=== PATIENT | female | born 1985 | race Hispanic/Latino ===

== ENCOUNTER 2018-08-08 08:25 | Emergency (ER) | payer OTHER ==
[2018-08-08] MEDS ORDERED: BENZONATATE 100 MG CAPSULE PO ONE (09:10)
[2018-08-08] MEDS ORDERED: ONDANSETRON HCL 4 MG/2 ML VIAL ONE (09:10)
[2018-08-08] MEDS ORDERED: SODIUM CHLORIDE 0.9% 1000ML 1,000 ML IV ONE ×2 (09:10→10:42)
[2018-08-08] MEDS ORDERED: AZITHROMYCIN 500MG+NS 250ML 250 ML IV ONE (09:11)
[2018-08-08] MEDS ORDERED: CEFTRIAXONE SODIUM 1 GM ONE (09:11)
[2018-08-08 09:18] LABS: BASOPHILS % (AUTO) 1.1 % (0.0-5.0); EOSINOPHILS % (AUTO) 0.2 % (0.0-8.0); HEMATOCRIT 38.6 % (36-48); LYMPHOCYTES % (AUTO) 62.3 % (21.0-51.0); MEAN CORPUSCULAR HGB CONC 33.3 g/dL (32.0-36.0); MONOCYTES % (AUTO) 8.5 % (3.0-13.0); NEUTROPHILS % (AUTO) 27.9 % (40.0-77.0); NUCLEATED RED BLOOD CELLS 0.2 % (0.0-0.19); PLATELET COUNT (AUTO) 127 K/uL (130-400); RED CELL DISTRIBUTION WIDTH 18.2 % (11.0-15.5); WHITE BLOOD COUNT (AUTO) 4.6 K/uL (4.8-10.8)
[2018-08-08 09:30] LABS: APPEARANCE,URINE CLEAR (CLEAR); BILIRUBIN,URINE NEGATIVE (NEGATIVE); COLOR,URINE YELLOW (YELLOW); GLUCOSE, URINE (UA) NEGATIVE (NEGATIVE); KETONES,URINE NEGATIVE (NEGATIVE); LEUKOCYTE ESTERASE ,URINE NEGATIVE (NEGATIVE); NITRATE,URINE NEGATIVE (NEGATIVE); OCCULT BLOOD,URINE NEGATIVE (NEGATIVE); PROTEIN,URINE TRACE (NEGATIVE)
[2018-08-08 09:31] LABS: CREATININE 0.6 mg/dL (0.5-1.5); POTASSIUM 3.1 mmol/L (3.5-5.1)
[2018-08-08 09:36] LABS: ALBUMIN 3.4 g/dL (3.5-5.0); BILIRUBIN,TOTAL 1.9 mg/dL (0.2-1.0); TOTAL PROTEIN, SERUM 7.7 g/dL (6.0-8.3)
[2018-08-08 09:41] LABS: HCG,QUAL RESULT NEGATIVE (NEGATIVE)
[2018-08-08 09:44] LABS: BACTERIA,URINE Rare /HPF (None Seen); MUCUS,URINE Rare LPF (None Seen); RBC,URINE None Seen /HPF (0-1); SQUAMOUS EPITHELIAL CELL,UR Few /HPF (0-2); WBC,URINE 0-1 /HPF (0-1)
[2018-08-08] MEDS ORDERED: POTASSIUM BICARB/CIT AC 25 MEQ TABLET.EFF ONE (10:42)
[2018-08-08] MEDS ORDERED: SODIUM CHLORIDE 0.9% 1000ML 1,000 ML IV SCH (11:35)
[2018-08-08] MEDS ORDERED: LORAZEPAM 2 MG/ML 1 ML VIAL ONE (11:42)
[2018-08-08] MEDS ORDERED: OSELTAMIVIR PHOSPHATE 75 MG CAP ONE (11:42)
[2018-08-08] MEDS ORDERED: MAG HYDROX/AL HYDROX/SIMETH ES 30 ML SUSP UDCUP PO PRN (11:45)
[2018-08-08] MEDS ORDERED: AZITHROMYCIN 500MG+NS 250ML 250 ML IV SCH (11:45)
[2018-08-08] MEDS ORDERED: ZOLPIDEM TARTRATE 5 MG TAB PO PRN (11:45)
[2018-08-08] MEDS ORDERED: ONDANSETRON HCL 4 MG/2 ML VIAL IV PRN (11:45)
[2018-08-08] MEDS ORDERED: GUAIFENESIN-DM 200/20 MG 10 ML PO PRN (11:45)
[2018-08-08] MEDS ORDERED: ACETAMINOPHEN 325 MG TAB PO PRN (11:45)
[2018-08-08] MEDS ORDERED: LACTULOSE 20 GM/30 ML UDCUP PO PRN (11:45)
[2018-08-08] MEDS ORDERED: CEFTRIAXONE SODIUM 1 GM IV SCH (11:45)
[2018-08-08] MEDS ORDERED: HYDRALAZINE HCL 20 MG/ML VIAL IV PRN (11:45)
[2018-08-08] MEDS ORDERED: IPRATROPIUM/ALBUTEROL SULFATE 3 ML SOLUTION IH SCH (12:00)
[2018-08-08 12:07] LABS: HEMOGLOBIN A1C 4.9 % (4.0-6.0)
[2018-08-08 12:17] LABS: THYROID STIMULATING HORMONE 2.67 uIU/mL (0.36-3.74)
[2018-08-08 12:23] LABS: CRP QUANTITATIVE < 2.00 mg/L (0.00-9.0)
[2018-08-08] MEDS ORDERED: BENZONATATE 100 MG CAPSULE PO SCH (14:00)
[2018-08-09] MEDS ORDERED: PANTOPRAZOLE SODIUM 40 MG TABLET.DR PO SCH (09:00)
[2018-08-09] MEDS ORDERED: ENOXAPARIN SODIUM 40 MG/0.4 ML SYRINGE SQ SCH (09:00)
[2018-08-09 10:09] LABS: HEPATITIS A ANTIBODY IGM Negative (Negative); HEPATITIS B CORE IGM Negative (Negative); HEPATITIS Bs ANTIGEN SCREEN P Negative (Negative)
== END 2018-08-08 12:04 | disposition left against medical advice (07) ==
LOC: EEVIPCON 08:25 → EDH 08:25
DX: R05 Cough (principal); R09.81 Nasal congestion; R50.9 Fever, unspecified; Z88.6 Allergy status to analgesic agent; Z91.041 Radiographic dye allergy status
CPT/HCPCS: 36415; 71046; 80053; 80074; 80339; 81001; 81025; 83036; 83605 ×2; 84443; 85025; 86140; 87040; 87804 ×2; 96365; 96366; 96375; 99285; J0456; J0696; J2060; J2405; J7030 ×2

== ENCOUNTER 2018-08-08 19:50 | Emergency (ER) | payer OTHER ==
[2018-08-08 21:24] LABS: APPEARANCE,URINE Clear (CLEAR); BILIRUBIN,URINE Negative (NEGATIVE); COLOR,URINE Yellow (YELLOW); GLUCOSE, URINE (UA) Negative (NEGATIVE); KETONES,URINE Negative (NEGATIVE); LEUKOCYTE ESTERASE ,URINE Negative (NEGATIVE); NITRATE,URINE Negative (NEGATIVE); OCCULT BLOOD,URINE Negative (NEGATIVE); PH,URINE >=9.0 (5.0-8.0); PROTEIN,URINE Negative (NEGATIVE)
[2018-08-08 21:30] LABS: AMPHET/METH SCREEN,URINE NEGATIVE (NEGATIVE); BARBITURATE SCREEN, URINE NEGATIVE (NEGATIVE); BENZODIAZEPINES SCREEN,URINE POSITIVE (NEGATIVE); CANNABINOID SCREEN,URINE NEGATIVE (NEGATIVE); COCAINE SCREEN,URINE NEGATIVE (NEGATIVE); OPIATE SCREEN,URINE NEGATIVE (NEGATIVE); PHENCYCLIDINE SCREEN,URINE NEGATIVE (NEGATIVE)
[2018-08-08 22:20] LABS: BASOPHILS % (AUTO) 0.2 % (0.0-5.0); EOSINOPHILS % (AUTO) 0.1 % (0.0-8.0); LYMPHOCYTES % (AUTO) 27.6 % (21.0-51.0); MEAN CORPUSCULAR HEMOGLOBIN 32.6 pg (27.0-33.0); MEAN CORPUSCULAR VOLUME 98.8 fL (79-99); MONOCYTES % (AUTO) 12.9 % (3.0-13.0); NEUTROPHILS % (AUTO) 59.2 % (40.0-77.0); NUCLEATED RED BLOOD CELLS 0.1 % (0.0-0.19); PLATELET COUNT (AUTO) 116 K/uL (130-400); RED BLOOD CELL COUNT(AUTO) 4.15 MIL/uL (4.00-5.50); RED CELL DISTRIBUTION WIDTH 18.3 % (11.0-15.5); WHITE BLOOD COUNT (AUTO) 4.7 K/uL (4.8-10.8)
[2018-08-08 22:29] LABS: CARBON DIOXIDE 31 mmol/L (21-32); CHLORIDE 97 mmol/L (101-111); CREATININE 0.7 mg/dL (0.5-1.5); GLOMERULAR FILTR. RATE CALC 102 mL/min (>60); GLUCOSE,RANDOM 106 mg/dL (70-105); POTASSIUM 3.9 mmol/L (3.5-5.1); SODIUM SERUM 137 mmol/L (136-145); UREA NITROGEN, BLOOD 4 mg/dL (7-18)
[2018-08-08 22:34] LABS: ALANINE AMINOTRANSFERASE 162 U/L (12-78); ALBUMIN 3.5 g/dL (3.5-5.0); ALCOHOL, BLOOD < 3 mg/dL (0-10); ASPARTATE AMINOTRANSFERASE 369 U/L (10-37); BILIRUBIN,TOTAL 3.7 mg/dL (0.2-1.0); CREATINE KINASE, TOTAL 34 U/L (21-232); TOTAL PROTEIN, SERUM 7.6 g/dL (6.0-8.3)
== END 2018-08-08 23:18 | disposition home or self-care (01) ==
LOC: EDH 19:50
DX: K76.0 Fatty (change of) liver, not elsewhere classified (principal); R50.9 Fever, unspecified; R05 Cough; Z88.6 Allergy status to analgesic agent; Z91.041 Radiographic dye allergy status
CPT/HCPCS: 36415; 80053; 80305; 81003; 82550; 83605; 84484; 85025; 87880; 93005; 99285; G0480

== ENCOUNTER 2018-10-12 16:08 | Emergency (ER) | payer OTHER ==
[2018-10-12] MEDS ORDERED: SODIUM CHLORIDE 0.9% 1000ML 1,000 ML IV ONE (16:38)
[2018-10-12 17:07] LABS: BASOPHILS % (AUTO) 0.5 % (0.0-5.0); EOSINOPHILS % (AUTO) 0.2 % (0.0-8.0); HEMATOCRIT 33.8 % (36-48); MEAN CORPUSCULAR HEMOGLOBIN 35.2 pg (27.0-33.0); MEAN CORPUSCULAR HGB CONC 33.3 g/dL (32.0-36.0); MEAN CORPUSCULAR VOLUME 105.7 fL (79-99); MONOCYTES % (AUTO) 12.9 % (3.0-13.0); NEUTROPHILS % (AUTO) 66.4 % (40.0-77.0); NUCLEATED RED BLOOD CELLS 0.1 % (0.0-0.19); PLATELET COUNT (AUTO) 138 K/uL (130-400); RED CELL DISTRIBUTION WIDTH 18.9 % (11.0-15.5); WHITE BLOOD COUNT (AUTO) 5.8 K/uL (4.8-10.8)
[2018-10-12 17:12] LABS: INR 1.37 (0.85-1.15); PARTIAL THROMBOPLASTIN TIME 27.4 SEC (26.3-35.5); PROTHROMBIN TIME 14.3 SEC (9.6-11.6)
[2018-10-12 17:13] LABS: ALBUMIN 3.5 g/dL (3.5-5.0); BILIRUBIN,TOTAL 12.9 mg/dL (0.2-1.0); CREATININE 0.8 mg/dL (0.5-1.5)
[2018-10-12 17:15] LABS: POTASSIUM 2.5 mmol/L (3.5-5.1)
[2018-10-12] MEDS ORDERED: KETOROLAC TROMETHAMINE 15MG/ML ONE (17:28)
[2018-10-12] MEDS ORDERED: POTASSIUM BICARB/CIT AC 25 MEQ TABLET.EFF ONE (17:43)
[2018-10-12] MEDS ORDERED: MAGNESIUM OXIDE 400 MG TABLET PO ONE (17:43)
[2018-10-12] MEDS ORDERED: POTASSIUM CHLORIDE 20MEQ/100ML 100 ML IV ONE (17:44)
[2018-10-12 18:05] LABS: APPEARANCE,URINE CLOUDY (CLEAR); BILIRUBIN,URINE LARGE (NEGATIVE); COLOR,URINE ORANGE (YELLOW); GLUCOSE, URINE (UA) 100 mg/dL (NEGATIVE); KETONES,URINE 15 mg/dL (NEGATIVE); LEUKOCYTE ESTERASE ,URINE TRACE (NEGATIVE); NITRATE,URINE POSITIVE (NEGATIVE); OCCULT BLOOD,URINE SMALL (NEGATIVE); PH,URINE 6.5 (5.0-8.0); PROTEIN,URINE 100 (NEGATIVE); UROBILINOGEN,URINE >=8.0 mg/dL (0.2-1.0)
[2018-10-12 18:34] LABS: BACTERIA,URINE Few /HPF (None Seen); MUCUS,URINE Moderate LPF (None Seen); SQUAMOUS EPITHELIAL CELL,UR Moderate /HPF (0-2)
[2018-10-12 18:44] LABS: HYALINE CASTS, URINE 0-1 /LPF (0-1 /LPF)
[2018-10-12] MEDS ORDERED: LIDOCAINE HCL-MPF 1% 2ML VIAL ONE (19:26)
[2018-10-12] MEDS ORDERED: NITROFURANTOIN MONOHYD/M-CRYST 100 MG CAPSULE PO ONE (20:12)
== END 2018-10-12 20:49 | disposition home or self-care (01) ==
LOC: EDH 16:08
DX: N39.0 Urinary tract infection, site not specified (principal); E87.6 Hypokalemia; R17 Unspecified jaundice; F32.9 Major depressive disorder, single episode, unspecified; F41.9 Anxiety disorder, unspecified; K29.70 Gastritis, unspecified, without bleeding; Z88.5 Allergy status to narcotic agent; Z91.041 Radiographic dye allergy status
CPT/HCPCS: 36415; 76770; 80053; 81001; 83690; 83735; 84132; 84703; 85025; 85610; 85730; 93005; 96374; 96375; 99284; J1885; J3480; J3490; J7030

== ENCOUNTER 2018-10-17 14:56 | Inpatient (IN) | payer OTHER ==
[~2018-10-17] VITALS: Ht 154.9 cm; Wt 58.3 kg
[2018-10-17] MEDS ORDERED: ONDANSETRON HCL 4 MG/2 ML VIAL ONE (16:08)
[2018-10-17] MEDS ORDERED: DICYCLOMINE HCL 10 MG/ML 2ML AMP IM ONE (16:08)
[2018-10-17] MEDS ORDERED: SODIUM CHLORIDE 0.9% 1000ML 1,000 ML IV ONE (16:08)
[2018-10-17 16:28] LABS: BASOPHILS % (AUTO) 2.4 % (0.0-5.0); EOSINOPHILS % (AUTO) 0.1 % (0.0-8.0); HEMATOCRIT 33.4 % (36-48); LYMPHOCYTES % (AUTO) 10.2 % (21.0-51.0); MEAN CORPUSCULAR HEMOGLOBIN 36.4 pg (27.0-33.0); MEAN CORPUSCULAR HGB CONC 32.8 g/dL (32.0-36.0); MEAN CORPUSCULAR VOLUME 110.9 fL (79-99); MONOCYTES % (AUTO) 24.1 % (3.0-13.0); NEUTROPHILS % (AUTO) 63.2 % (40.0-77.0); NUCLEATED RED BLOOD CELLS 0.1 % (0.0-0.19); PLATELET COUNT (AUTO) 317 K/uL (130-400); RED BLOOD CELL COUNT(AUTO) 3.01 MIL/uL (4.00-5.50); RED CELL DISTRIBUTION WIDTH 21.4 % (11.0-15.5); WHITE BLOOD COUNT (AUTO) 6.1 K/uL (4.8-10.8)
[2018-10-17 16:29] LABS: APPEARANCE,URINE Cloudy (CLEAR); BILIRUBIN,URINE Large (NEGATIVE); COLOR,URINE Orange (YELLOW); GLUCOSE, URINE (UA) Negative (NEGATIVE); KETONES,URINE Negative (NEGATIVE); LEUKOCYTE ESTERASE ,URINE Moderate (NEGATIVE); NITRATE,URINE Positive (NEGATIVE); OCCULT BLOOD,URINE Negative (NEGATIVE); PH,URINE 5.5 (5.0-8.0); PROTEIN,URINE POS 1+ (NEGATIVE)
[2018-10-17 16:32] LABS: HCG,QUAL RESULT NEGATIVE (NEGATIVE)
[2018-10-17 16:38] LABS: CREATININE 0.4 mg/dL (0.5-1.5); POTASSIUM 3.4 mmol/L (3.5-5.1)
[2018-10-17 16:39] LABS: INR 1.3 (0.85-1.15); PARTIAL THROMBOPLASTIN TIME 25.9 SEC (26.3-35.5); PROTHROMBIN TIME 13.6 SEC (9.6-11.6)
[2018-10-17 16:50] LABS: MUCUS,URINE Many LPF (None Seen)
[2018-10-17 16:51] LABS: ALBUMIN 2.9 g/dL (3.5-5.0); BACTERIA,URINE Few /HPF (None Seen); RBC,URINE None Seen /HPF (0-1); TOTAL PROTEIN, SERUM 6.4 g/dL (6.0-8.3); TRANSITIONAL EPI CELLS,URINE Moderate /HPF (None Seen)
[2018-10-17 16:53] LABS: BILIRUBIN,TOTAL 16.8 mg/dL (0.2-1.0)
[2018-10-17 23:00] VITALS: BP 111/61
[2018-10-17] MEDS ORDERED: ONDANSETRON HCL 4 MG/2 ML VIAL IV PRN (23:15)
[2018-10-17] MEDS ORDERED: POTASSIUM CHLORIDE 20MEQ/100ML 100 ML IV PRN (23:15)
[2018-10-17] MEDS ORDERED: LIDOCAINE HCL-MPF 1% 2ML VIAL IVP PRN (23:15)
[2018-10-17] MEDS ORDERED: MAGNESIUM 2GM PREMIX 50ML 50 ML IV PRN (23:15)
[2018-10-18] VITALS (23 sets, daily range): BP systolic 84–128; BP diastolic 40–76
--- NOTE | 2018-10-18 01:43 | NUR ---
ATTEMPTED REPORT ATTEMPTED TO CALL REPORT, SCOT NOT AVAILABLE AT PRESENT
--- NOTE | 2018-10-18 02:09 | NUR ---
REPORT REPORT GIVEN TO SCOT MENDOZA, CARE ENDORSED. PT AAOX3, TRANSFERRED VIA STRETCHER
--- NOTE | 2018-10-18 02:30 | NUR ---
ADMISSION. PT ADMITTED INTO ROOM 422 FROM ER. TRANSFERRED VIA W/C, PT AWAKE AND ALERT, ABLE TO AMBULATE TO BED. C/O PAIN TO ABD 07/29. PT AND FAMILY ORIENTED TO ROOM. CALL MAZARIEGOS WITHIN REACH. Addendum: 10/18/18 at 0254 by SANIA PORTILLO RN Amended: Links added.
[2018-10-18] MEDS ORDERED: MORPHINE SULFATE 4 MG/1ML SYG IV SCH (03:00)
[2018-10-18] MEDS: SODIUM CHLORIDE 0.9% 1000ML 1,000 ML IV SCH ×4 (03:07→22:09)
[2018-10-18] MEDS: LEVOFLOXACIN 500 MG/D5W 100 ML 100 ML IV SCH ×2 (03:07→22:51)
[2018-10-18] MEDS ORDERED: MORPHINE SULFATE 4 MG/1ML SYG ONE (03:18)
[2018-10-18] MEDS ORDERED: MORPHINE SULFATE 2 MG/ML 1ML SYG IVP PRN (04:00)
[2018-10-18 04:32] LABS: AMPHET/METH SCREEN,URINE NEGATIVE (NEGATIVE); BARBITURATE SCREEN, URINE NEGATIVE (NEGATIVE); BENZODIAZEPINES SCREEN,URINE POSITIVE (NEGATIVE); CANNABINOID SCREEN,URINE NEGATIVE (NEGATIVE); COCAINE SCREEN,URINE NEGATIVE (NEGATIVE); OPIATE SCREEN,URINE NEGATIVE (NEGATIVE); PHENCYCLIDINE SCREEN,URINE NEGATIVE (NEGATIVE)
[2018-10-18 06:14] LABS: EOSINOPHILS % (AUTO) 0.2 % (0.0-8.0); HEMATOCRIT 27.2 % (36-48); LYMPHOCYTES % (AUTO) 19.5 % (21.0-51.0); MEAN CORPUSCULAR HEMOGLOBIN 36.9 pg (27.0-33.0); MEAN CORPUSCULAR HGB CONC 33.8 g/dL (32.0-36.0); MEAN CORPUSCULAR VOLUME 109.2 fL (79-99); MONOCYTES % (AUTO) 25.7 % (3.0-13.0); NEUTROPHILS % (AUTO) 52.6 % (40.0-77.0); NUCLEATED RED BLOOD CELLS 0.1 % (0.0-0.19); PLATELET COUNT (AUTO) 277 K/uL (130-400); RED BLOOD CELL COUNT(AUTO) 2.49 MIL/uL (4.00-5.50); RED CELL DISTRIBUTION WIDTH 21.2 % (11.0-15.5); WHITE BLOOD COUNT (AUTO) 6.3 K/uL (4.8-10.8)
[2018-10-18 06:26] LABS: INR 1.44 (0.85-1.15); PARTIAL THROMBOPLASTIN TIME 28.2 SEC (26.3-35.5)
[2018-10-18 06:38] LABS: ALBUMIN 2.5 g/dL (3.5-5.0); BILIRUBIN,TOTAL 15.4 mg/dL (0.2-1.0); CREATININE 0.5 mg/dL (0.5-1.5); POTASSIUM 3.2 mmol/L (3.5-5.1); TOTAL PROTEIN, SERUM 5.9 g/dL (6.0-8.3)
[2018-10-18] MEDS ORDERED: PANTOPRAZOLE 40 MG/VIAL IVP SCH (09:00)
[2018-10-18] MEDS ORDERED: METOCLOPRAMIDE 10 MG/2 ML VIAL IVP SCH (09:16)
[2018-10-18] MEDS ORDERED: PHYTONADIONE 10 MG in SODIUM CHLORIDE 0.9% 50 ML IV SCH (09:16)
[2018-10-18] MEDS ORDERED: LACTULOSE 20 GM/30 ML UDCUP PO PRN (11:00)
[2018-10-18] MEDS ORDERED: PROPOFOL 10 MG/ML 20ML VIAL IV ONE (11:37)
[2018-10-18] MEDS ORDERED: POTASSIUM CHLORIDE 10% ELIXIR 20 MEQ/15 ML UDCUP PO PRN (14:00)
[2018-10-18] MEDS ORDERED: POTASSIUM CHLORIDE 20MEQ/100ML 100 ML IV PRN (14:00)
[2018-10-18] MEDS ORDERED: LIDOCAINE HCL-MPF 1% 2ML VIAL IVP PRN (14:00)
--- NOTE | 2018-10-18 15:33 | NUR ---
D/C PLAN MARY spoke to pt regarding d/c planning. pt is independent and lives with her children. States her sister can assist in care if needed. Cm provided community resources packet. Plan to home. CM to f/u Addendum: 10/18/18 at 1534 by ALYSIA TEE CM Amended: Links added.
[2018-10-18] MEDS: POTASSIUM CHLORIDE 20 MEQ ERTAB PO PRN ×4 (15:40→20:58)
[2018-10-18] MEDS ORDERED: ZOLPIDEM TARTRATE 5 MG TAB PO ONE (21:00)
[2018-10-18] MEDS: LACTULOSE 20 GM/30 ML UDCUP PO SCH (21:00)
[2018-10-18] MEDS: HYDROCORTISONE 25 MG SUPPOSITORY PR SCH (21:15)
[2018-10-19 04:00] VITALS: BP 101/52
[2018-10-19] MEDS: SODIUM CHLORIDE 0.9% 1000ML 1,000 ML IV SCH ×2 (06:24→09:03)
[2018-10-19 06:58] LABS: BASOPHILS % (AUTO) 0.9 % (0.0-5.0); EOSINOPHILS % (AUTO) 0.2 % (0.0-8.0); HEMATOCRIT 26.8 % (36-48); LYMPHOCYTES % (AUTO) 12.2 % (21.0-51.0); MEAN CORPUSCULAR HEMOGLOBIN 37.1 pg (27.0-33.0); MEAN CORPUSCULAR HGB CONC 33.2 g/dL (32.0-36.0); MEAN CORPUSCULAR VOLUME 111.6 fL (79-99); MONOCYTES % (AUTO) 21.3 % (3.0-13.0); NEUTROPHILS % (AUTO) 65.4 % (40.0-77.0); PLATELET COUNT (AUTO) 307 K/uL (130-400); WHITE BLOOD COUNT (AUTO) 6.3 K/uL (4.8-10.8)
[2018-10-19 07:06] LABS: CREATININE 0.5 mg/dL (0.5-1.5)
[2018-10-19 07:30] VITALS: BP 96/53
[2018-10-19] MEDS: HYDROCORTISONE 25 MG SUPPOSITORY PR SCH (08:50)
[2018-10-19] MEDS: LACTULOSE 20 GM/30 ML UDCUP PO SCH (08:51)
[2018-10-19] MEDS ORDERED: POLYETHYLENE GLYCOL 3350 17 GM POWD.PACK PO SCH (09:00)
[2018-10-19] MEDS ORDERED: PANTOPRAZOLE SODIUM 40 MG TABLET.DR PO SCH (09:00)
[2018-10-19] MEDS ORDERED: PANT40TA PO (10:43)
[2018-10-19 11:00] VITALS: BP 102/58
[2018-10-20 09:09] LABS: HEPATITIS A ANTIBODY IGM Negative (Negative); HEPATITIS B CORE IGM Negative (Negative); HEPATITIS Bs ANTIGEN SCREEN P Negative (Negative)
== END 2018-10-19 14:50 | disposition home or self-care (01) | DRG 377 ==
LOC: EDH 14:56 → EDHIP 14:57 → 4AH 23:21 → 4CH 10-18 00:49
PROVIDERS: ADMIT Hospitalist; ATTEND Hospitalist
PROC: 0DJ08ZZ Inspection of Upper Intestinal Tract, Via Natural or Artificial Opening Endoscopic (ICD-10-PCS; principal; 2018-10-18)
DX: K29.01 Acute gastritis with bleeding (principal); K83.1 Obstruction of bile duct; D62 Acute posthemorrhagic anemia; N39.0 Urinary tract infection, site not specified; K76.6 Portal hypertension; E87.6 Hypokalemia; K21.0 Gastro-esophageal reflux disease with esophagitis; K31.89 Other diseases of stomach and duodenum; F41.9 Anxiety disorder, unspecified; F32.9 Major depressive disorder, single episode, unspecified; B96.81 Helicobacter pylori [H. pylori] as the cause of diseases classified elsewhere; K57.90 Diverticulosis of intestine, part unspecified, without perforation or abscess without bleeding; K59.00 Constipation, unspecified; K63.5 Polyp of colon; L53.9 Erythematous condition, unspecified; K74.60 Unspecified cirrhosis of liver; K75.9 Inflammatory liver disease, unspecified; K76.0 Fatty (change of) liver, not elsewhere classified; Z97.5 Presence of (intrauterine) contraceptive device; Z86.010 Personal history of colon polyps; Z83.49 Family history of other endocrine, nutritional and metabolic diseases; Z83.3 Family history of diabetes mellitus; Z82.49 Family history of ischemic heart disease and other diseases of the circulatory system
CPT/HCPCS: 36415; 43235; 74018; 76705; 80048; 80053; 80074; 80305; 81001; 81025; 82270; 83690; 83735; 84132; 85025; 85610; 85730; 86677; 87088; C9113; G0378; J0500; J1956; J2270; J2405; J2704; J2765; J3430; J3480; J3490; J7030

== ENCOUNTER 2018-10-29 16:18 | Inpatient (IN) | payer OTHER ==
[~2018-10-29] VITALS: Ht 157.5 cm; Wt 78.2 kg
[~2018-10-29 16:18] MED LIST: ATROPINE SULFATE 0.1 MG/ML 10 ML SYG IVP ONE; DOPAMINE HCL 400 MG/D5%-WATER 250 ML IV ONE; EPINEPHRINE 0.1 MG/ML 10 ML SYG IVP ONE; ETOMIDATE 2 MG/ML 10 ML VIAL IVP ONE; PANT40TA PO; ROCURONIUM BROMIDE 10MG/1ML 5ML VL IV ONE
[2018-10-29 17:04] LABS: BASOPHILS % (AUTO) 0.7 % (0.0-5.0); EOSINOPHILS % (AUTO) 0.2 % (0.0-8.0); HEMATOCRIT 26.7 % (36-48); LYMPHOCYTES % (AUTO) 10.3 % (21.0-51.0); MEAN CORPUSCULAR HEMOGLOBIN 36.9 pg (27.0-33.0); MEAN CORPUSCULAR HGB CONC 32.1 g/dL (32.0-36.0); MEAN CORPUSCULAR VOLUME 114.7 fL (79-99); MONOCYTES % (AUTO) 11.3 % (3.0-13.0); NEUTROPHILS % (AUTO) 77.5 % (40.0-77.0); PLATELET COUNT (AUTO) 325 K/uL (130-400); RED BLOOD CELL COUNT(AUTO) 2.33 MIL/uL (4.00-5.50); RED CELL DISTRIBUTION WIDTH 18.5 % (11.0-15.5); WHITE BLOOD COUNT (AUTO) 22.1 K/uL (4.8-10.8)
[2018-10-29 17:16] LABS: INR 1.62 (0.85-1.15); PARTIAL THROMBOPLASTIN TIME 41.8 SEC (26.3-35.5); PROTHROMBIN TIME 16.9 SEC (9.6-11.6)
[2018-10-29 17:19] LABS: CARBON DIOXIDE 23 mmol/L (21-32); CHLORIDE 99 mmol/L (101-111); CREATININE 1.8 mg/dL (0.5-1.5); GLOMERULAR FILTR. RATE CALC 34 mL/min (>60); GLUCOSE,RANDOM 92 mg/dL (70-105); POTASSIUM 4.6 mmol/L (3.5-5.1); SODIUM SERUM 136 mmol/L (136-145); UREA NITROGEN, BLOOD 0 mg/dL (7-18)
[2018-10-29 17:37] LABS: ALANINE AMINOTRANSFERASE 30 U/L (12-78); ASPARTATE AMINOTRANSFERASE 189 U/L (10-37); CREATINE KINASE, TOTAL 37 U/L (21-232); TOTAL PROTEIN, SERUM 5.7 g/dL (6.0-8.3)
[2018-10-29 17:40] LABS: B-TYPE NATRIURETIC PEPTIDE 196 pg/mL (0-100)
[2018-10-29 17:45] LABS: ALCOHOL, BLOOD < 3 mg/dL (0-10); BILIRUBIN,TOTAL 25.5 mg/dL (0.2-1.0)
[2018-10-29] MEDS ORDERED: LEVOFLOXACIN 500 MG TABLET ONE ×2 (17:47→18:00)
[2018-10-29] MEDS ORDERED: CEFTRIAXONE SODIUM 1 GM ONE (17:47)
[2018-10-29] MEDS ORDERED: PHYTONADIONE 10 MG/1 ML AMP ONE (17:48)
[2018-10-29] MEDS ORDERED: SODIUM CHLORIDE 0.9% 100 ML IV ONE (17:48)
[2018-10-29 17:49] LABS: ALBUMIN 1.8 g/dL (3.5-5.0); AMYLASE 2 U/L (25-115)
[2018-10-29] MEDS ORDERED: SODIUM CHLORIDE 0.9% 200 ML IV ONE (17:51)
[2018-10-29 19:05] LABS: BILIRUBIN,URINE LARGE (NEGATIVE); GLUCOSE, URINE (UA) 100 mg/dL (NEGATIVE); KETONES,URINE 15 mg/dL (NEGATIVE); LEUKOCYTE ESTERASE ,URINE TRACE (NEGATIVE); NITRATE,URINE POSITIVE (NEGATIVE); OCCULT BLOOD,URINE TRACE-LYSED (NEGATIVE); PH,URINE 6.5 (5.0-8.0); PROTEIN,URINE 100 (NEGATIVE)
[2018-10-29 19:09] LABS: APPEARANCE,URINE SLIGHTLY CLOUDY (CLEAR)
[2018-10-29 19:10] LABS: COLOR,URINE AMBER (YELLOW)
[2018-10-29 19:14] LABS: AMPHET/METH SCREEN,URINE NEGATIVE (NEGATIVE); BARBITURATE SCREEN, URINE NEGATIVE (NEGATIVE); BENZODIAZEPINES SCREEN,URINE POSITIVE (NEGATIVE); CANNABINOID SCREEN,URINE NEGATIVE (NEGATIVE); COCAINE SCREEN,URINE NEGATIVE (NEGATIVE); OPIATE SCREEN,URINE NEGATIVE (NEGATIVE); PHENCYCLIDINE SCREEN,URINE NEGATIVE (NEGATIVE)
[2018-10-29 19:17] LABS: HCG,QUAL RESULT NEGATIVE (NEGATIVE)
[2018-10-29 19:22] LABS: BACTERIA,URINE Few /HPF (None Seen); RBC,URINE None Seen /HPF (0-1); SQUAMOUS EPITHELIAL CELL,UR None Seen /HPF (0-2)
[2018-10-29] MEDS: SODIUM CHLORIDE 0.9% 1000ML 1,000 ML IV SCH (19:36)
[2018-10-29] MEDS ORDERED: CEFTRIAXONE SODIUM 1 GM IV SCH (19:45)
[2018-10-29] MEDS ORDERED: ACETAMINOPHEN 325 MG TAB PO PRN (19:45)
[2018-10-29] MEDS ORDERED: PANTOPRAZOLE SODIUM 80 MG in SODIUM CHLORIDE 0.9% 100 ML IV SCH (19:58)
[2018-10-29] MEDS ORDERED: MORPHINE SULFATE 4 MG/1ML SYG ONE (20:15)
[2018-10-30 00:11] LABS: HEMATOCRIT 22.4 % (36-48)
[2018-10-30] MEDS ORDERED: METRONIDAZOLE 500MG/100ML BAG 100 ML ONE ×3 (00:53→23:07)
[2018-10-30] MEDS ORDERED: SODIUM CHLORIDE 0.9% 1000ML 1,000 ML IV ONE ×2 (00:53→07:21)
[2018-10-30] MEDS: METRONIDAZOLE 500MG/100ML BAG 100 ML IV SCH (06:00)
[2018-10-30 06:01] LABS: % IRON SATURATION 74.6 % (22-44)
[2018-10-30] MEDS ORDERED: ONDANSETRON HCL 4 MG/2 ML VIAL ONE (08:22)
[2018-10-30] MEDS ORDERED: ACETAMINOPHEN 325 MG TAB PO SCH (15:30)
[2018-10-30] MEDS ORDERED: DIPHENHYDRAMINE HCL 25 MG CAPSULE PO SCH (15:30)
[2018-10-30] MEDS ORDERED: SODIUM CHLORIDE 0.9% 200 ML IV ONE (16:55)
[2018-10-30] MEDS ORDERED: PHYTONADIONE 10 MG/1 ML AMP ONE (16:55)
[2018-10-30] MEDS ORDERED: OCTREOTIDE ACETATE 200 MCG/ML 5 ML VIAL ONE (16:56)
[2018-10-30 17:14] LABS: MEAN CORPUSCULAR HEMOGLOBIN 38.2 pg (27.0-33.0); MEAN CORPUSCULAR HGB CONC 32.6 g/dL (32.0-36.0); MEAN CORPUSCULAR VOLUME 117.2 fL (79-99); PLATELET COUNT (AUTO) 326 K/uL (130-400); RED BLOOD CELL COUNT(AUTO) 2.14 MIL/uL (4.00-5.50); RED CELL DISTRIBUTION WIDTH 18.7 % (11.0-15.5); WHITE BLOOD COUNT (AUTO) 20.6 K/uL (4.8-10.8)
[2018-10-30] MEDS ORDERED: ZOSYN 3.375GM+NS 50ML 50 ML IV ONE (17:38)
[2018-10-30] MEDS ORDERED: MORPHINE SULFATE 4 MG/1ML SYG ONE ×2 (17:38→23:53)
[2018-10-30] MEDS ORDERED: SODIUM CHLORIDE 0.9% 50 ML IV ONE (17:40)
[2018-10-30 17:53] LABS: ALBUMIN 1.8 g/dL (3.5-5.0); CREATININE 2.3 mg/dL (0.5-1.5); CRP QUANTITATIVE 122.9 mg/L (0.00-9.0); POTASSIUM 3.5 mmol/L (3.5-5.1); TOTAL PROTEIN, SERUM 5.6 g/dL (6.0-8.3)
[2018-10-30 17:57] LABS: BILIRUBIN,TOTAL 25.4 mg/dL (0.2-1.0)
[2018-10-30 18:34] LABS: ERYTHROCYTE SEDIMENTATION RATE 70 MM/HR (0-20)
[2018-10-30] MEDS: LEVOFLOXACIN 500 MG/D5W 100 ML 100 ML IV SCH (19:45)
[2018-10-30] MEDS ORDERED: LORAZEPAM 2 MG/ML 1 ML VIAL ONE (20:47)
[2018-10-30 21:35] LABS: INR 1.61 (0.85-1.15); PARTIAL THROMBOPLASTIN TIME 42.7 SEC (26.3-35.5); PROTHROMBIN TIME 16.7 SEC (9.6-11.6)
[2018-10-30] MEDS ORDERED: ACETYLCYSTEINE 20% 200MG/ML 30ML VIAL ONE (21:35)
[2018-10-30] MEDS ORDERED: DEXTROSE 5%-WATER 500 ML IV ONE (21:36)
[2018-10-31] MEDS ORDERED: DEXTROSE 5%-WATER 500 ML IV ONE (00:03)
[2018-10-31] MEDS ORDERED: MORPHINE SULFATE 4 MG/1ML SYG ONE ×3 (03:52→23:24)
[2018-10-31] MEDS ORDERED: SODIUM CHLORIDE 0.9% 200 ML IV ONE ×2 (04:00→14:51)
[2018-10-31] MEDS ORDERED: OCTREOTIDE ACETATE 200 MCG/ML 5 ML VIAL ONE ×2 (04:00→14:53)
[2018-10-31] MEDS ORDERED: ACETYLCYSTEINE 20% 200MG/ML 30ML VIAL ONE (04:10)
[2018-10-31] MEDS ORDERED: DEXTROSE 5%-WATER 200 ML IV ONE (04:21)
[2018-10-31 05:36] LABS: BASOPHILS % (AUTO) 1.1 % (0.0-5.0); EOSINOPHILS % (AUTO) 0.3 % (0.0-8.0); HEMATOCRIT 22.9 % (36-48); LYMPHOCYTES % (AUTO) 7.5 % (21.0-51.0); MEAN CORPUSCULAR HEMOGLOBIN 36.7 pg (27.0-33.0); MEAN CORPUSCULAR HGB CONC 31.6 g/dL (32.0-36.0); MEAN CORPUSCULAR VOLUME 116.1 fL (79-99); MONOCYTES % (AUTO) 11.5 % (3.0-13.0); NEUTROPHILS % (AUTO) 79.6 % (40.0-77.0); PLATELET COUNT (AUTO) 242 K/uL (130-400); RED BLOOD CELL COUNT(AUTO) 1.97 MIL/uL (4.00-5.50); WHITE BLOOD COUNT (AUTO) 19.2 K/uL (4.8-10.8)
[2018-10-31 05:44] LABS: CREATININE 2.5 mg/dL (0.5-1.5); POTASSIUM 3.5 mmol/L (3.5-5.1)
[2018-10-31 05:51] LABS: INR 1.73 (0.85-1.15); PARTIAL THROMBOPLASTIN TIME 41.3 SEC (26.3-35.5)
[2018-10-31 06:00] LABS: ALBUMIN 1.5 g/dL (3.5-5.0); TOTAL PROTEIN, SERUM 4.8 g/dL (6.0-8.3)
[2018-10-31 06:03] LABS: BILIRUBIN,TOTAL 20.9 mg/dL (0.2-1.0)
[2018-10-31] MEDS ORDERED: METRONIDAZOLE 500MG/100ML BAG 100 ML ONE ×2 (07:52→18:26)
[2018-10-31] MEDS ORDERED: ZOSYN 3.375GM+NS 50ML 50 ML IV ONE ×2 (08:51→23:24)
[2018-10-31] MEDS ORDERED: SODIUM CHLORIDE 0.9% 50 ML IV ONE (08:52)
--- NOTE | 2018-10-31 13:38 | NUR ---
TRANSFER: OBTAINED RELEASE OF MEDICAL RECORDS AND CONSENT TO TRANSFER FROM PATIENT. INFORMED HER THAT I WOULD BE MAKING CALLS TO FIND PLACEMENT FOR HIGHER LEVEL OF CARE TO A TRANSPLANT CENTER. PATIENT VERBALIZED UNDERSTANDING. PLACED A CALL TO [facility] IN [place] @ [phone], SPOKE WITH AXEL TO INITIATE THE TRANSFER PROCESS. GAVE PARTICULARS ON PATIENT AND FAXED PERTINENT INFORMATION REQUESTED. ALSO GAVE DR. RICE'S CELL PHONE NUMBER FOR A DOC TO DOC CONSULT. AWAITING CALL BACK.
--- NOTE | 2018-10-31 16:06 | NUR ---
TRANSFER: RECEIVED A CALL FROM DR. RICE, SHE SPOKE WITH DR. SYD QUINTANA, TRANSPLANT SPECIALIST FROM [facility] IN [place], HE WANTED TO KNOW IF THE PATIENT HAD ANY ALCOHOLIC BEVERAGE IN THE LAST 6 MONTHS. I WENT AND ASKED THE PATIENT AND SHE STATED THAT THE LAST ALCOHOLIC DRINK SHE HAD WAS A MONTH AGO, DR. RICE STATED THAT THE TRANSPLANT CENTER WILL NOT TAKE PATIENT IF ETOH DRINK WAS LESS THAN 6 MONTHS AGO. PATIENT INFORMED.
[2018-10-31] MEDS ORDERED: SODIUM CHLORIDE 0.9% 1000ML 1,000 ML IV ONE (16:33)
[2018-10-31] MEDS ORDERED: ONDANSETRON HCL 4 MG/2 ML VIAL ONE (23:23)
[2018-10-31] MEDS ORDERED: LEVOFLOXACIN 500 MG/D5W 100 ML 100 ML ONE (23:24)
[2018-10-31] MEDS ORDERED: SODIUM CHLORIDE 0.9% 100 ML IV ONE (23:25)
[2018-11-01] MEDS ORDERED: METRONIDAZOLE 500MG/100ML BAG 100 ML ONE ×2 (02:24→08:58)
[2018-11-01] MEDS ORDERED: SODIUM CHLORIDE 0.9% 100 ML IV ONE (02:33)
[2018-11-01] MEDS ORDERED: OCTREOTIDE ACETATE 100 MCG/ML AMP ONE (02:55)
[2018-11-01] MEDS ORDERED: LORAZEPAM 2 MG/ML 1 ML VIAL ONE (05:37)
[2018-11-01] MEDS: METRONIDAZOLE 500MG/100ML BAG 100 ML IV SCH ×3 (06:00→21:46)
[2018-11-01 06:41] LABS: BASOPHILS % (AUTO) 0.6 % (0.0-5.0); EOSINOPHILS % (AUTO) 0.5 % (0.0-8.0); LYMPHOCYTES % (AUTO) 7.9 % (21.0-51.0); MEAN CORPUSCULAR HEMOGLOBIN 37.4 pg (27.0-33.0); MEAN CORPUSCULAR VOLUME 116.7 fL (79-99); MONOCYTES % (AUTO) 9.4 % (3.0-13.0); NEUTROPHILS % (AUTO) 81.6 % (40.0-77.0); NUCLEATED RED BLOOD CELLS 0.1 % (0.0-0.19); PLATELET COUNT (AUTO) 232 K/uL (130-400); RED BLOOD CELL COUNT(AUTO) 1.98 MIL/uL (4.00-5.50); RED CELL DISTRIBUTION WIDTH 18.4 % (11.0-15.5); WHITE BLOOD COUNT (AUTO) 17.7 K/uL (4.8-10.8)
[2018-11-01 07:16] LABS: ALBUMIN 1.5 g/dL (3.5-5.0); CREATININE 2.9 mg/dL (0.5-1.5); POTASSIUM 3.3 mmol/L (3.5-5.1); TOTAL PROTEIN, SERUM 4.9 g/dL (6.0-8.3)
[2018-11-01 07:32] LABS: BILIRUBIN,DIRECT 18.5 mg/dL (0.0-0.3); BILIRUBIN,TOTAL 20.7 mg/dL (0.2-1.0)
[2018-11-01] MEDS: SODIUM CHLORIDE 0.9% 1000ML 1,000 ML IV SCH ×3 (07:36→20:56)
[2018-11-01 08:11] LABS: INR 1.68 (0.85-1.15); PARTIAL THROMBOPLASTIN TIME 48.1 SEC (26.3-35.5); PROTHROMBIN TIME 17.5 SEC (9.6-11.6)
--- NOTE | 2018-11-01 08:45 | NUR ---
MD UPDATE Spoke to by phone to confirm that he was aware of consult/pt location. Briefly updated. Orders received - spoke to primary nurse caring for pt in ER. Pt still pending inpatient bed assignment.
[2018-11-01 10:15] VITALS: BP 107/46
[2018-11-01 11:00] VITALS: BP 97/52
[2018-11-01] MEDS: ZOSYN 3.375GM+NS 50ML 50 ML IV SCH ×3 (11:24→23:04)
[2018-11-01] MEDS: LORAZEPAM 2 MG/ML 1 ML VIAL IVP PRN ×2 (11:25→17:48)
[2018-11-01] MEDS: PHYTONADIONE 10 MG in SODIUM CHLORIDE 0.9% 50 ML IV SCH (12:19)
[2018-11-01] MEDS: MIDODRINE HCL 5 MG TABLET PO SCH ×3 (12:22→19:50)
[2018-11-01] MEDS ORDERED: COMPOUND IV MISC 1 EACH IVSOLN MISC PRN (13:00)
[2018-11-01 16:00] VITALS: BP 95/49
[2018-11-01 18:14] LABS: HEMATOCRIT 22.1 % (36-48)
[2018-11-01] MEDS: LEVOFLOXACIN 500 MG/D5W 100 ML 100 ML IV SCH ×3 (18:47→19:50)
[2018-11-01 19:00] VITALS: BP 96/44
--- NOTE | 2018-11-01 19:00 | NUR ---
Report handed to Haley MENDOZA. Patient is getting her 2nd unit of FFP. She was medicated twice today with Ativan 1mg IV. Patient will continue with NS, protonix drip, Zosyn, Levaquin, Flagyl, and will complete her Sandostatin tonight. Upper extremities are swollen. Last Hemoglobin drawn at 6pm was 7.1. No active bleeding. Patient was denied by Transplant center in [place] due to recent alcohol use.
[2018-11-01] MEDS: LACTULOSE 20 GM/30 ML UDCUP PO SCH (19:50)
--- NOTE | 2018-11-01 20:00 | NUR ---
CARE Assumned care,pt appears drowsy,talks inappropriately.On Ivf ns at 150 ml/hr,on triple antibiotic therapy for pyelonephritis.Mike arms swollen,icteric sclera.Attempted to insert a new iv to rt forearm x 2 attempts,renuka well.Pt and mother updated on plan of care.Pt keeps asking about her Ativan,told her she was just medicated per am nurse.
--- NOTE | 2018-11-01 22:30 | NUR ---
ACTIVITY Pt up ad liliam to bathroom with assistance.Mother helping her,instructed to call for assistance.Verbalized understanding.No active bleeding.
[2018-11-01 23:00] VITALS: BP 103/59
[2018-11-02 00:37] LABS: HEMATOCRIT 20.8 % (36-48)
--- NOTE | 2018-11-02 00:47 | NUR ---
ASHER espinal np notified re hemoglobin6.8,hct 20.8.She wants a recheck.Notified Terry from Lab.ivf paused this time. Addendum: 11/02/18 at 0048 by MARTI GARCIA RN RN Amended: Links added.
[2018-11-02 01:40] LABS: HEMATOCRIT 21.7 % (36-48)
--- NOTE | 2018-11-02 01:56 | NUR ---
ROXANE rockwell Np re repeat h and h results.
[2018-11-02] MEDS: LORAZEPAM 2 MG/ML 1 ML VIAL IVP PRN (02:14)
[2018-11-02] MEDS ORDERED: SODIUM CHLORIDE 0.9% 500ML 500 ML IV ONE (02:38)
[2018-11-02 03:00] VITALS: BP 122/80
--- NOTE | 2018-11-02 03:00 | NUR ---
PRBC First unit of prbc started.
--- NOTE | 2018-11-02 03:35 | NUR ---
GREASE MAKER Order for BT clarified,destiny leyva said to follow Dr merchant's order.
[2018-11-02] MEDS: SODIUM CHLORIDE 0.9% 1000ML 1,000 ML IV SCH ×4 (03:36→21:16)
--- NOTE | 2018-11-02 04:14 | NUR ---
STATUS Pt asleep,respirations even and unlabored.Tolerating blood transfusion.
--- NOTE | 2018-11-02 04:35 | NUR ---
NAUSEA Pt said she feels nauseated.Notified Bharti rockwell Np.
[2018-11-02] MEDS ORDERED: ONDANSETRON HCL 4 MG/2 ML VIAL IVP PRN (04:45)
[2018-11-02] MEDS: ONDANSETRON HCL 4 MG/2 ML VIAL IV PRN (05:21)
[2018-11-02] MEDS: METRONIDAZOLE 500MG/100ML BAG 100 ML IV SCH ×2 (05:21→13:05)
--- NOTE | 2018-11-02 05:35 | NUR ---
MED EFFECT Denies nausea or vomitting noted.
[2018-11-02] MEDS: ZOSYN 3.375GM+NS 50ML 50 ML IV SCH ×2 (06:29→14:35)
[2018-11-02 07:00] VITALS: BP 101/58
[2018-11-02 07:01] LABS: HEMATOCRIT 27.1 % (36-48)
--- NOTE | 2018-11-02 07:10 | NUR ---
REPORT Bedside report given to Sunil James.
[2018-11-02 07:26] LABS: MEAN CORPUSCULAR HEMOGLOBIN 35.3 pg (27.0-33.0); MEAN CORPUSCULAR HGB CONC 32.5 g/dL (32.0-36.0); MEAN CORPUSCULAR VOLUME 108.9 fL (79-99); PLATELET COUNT (AUTO) 220 K/uL (130-400); RED BLOOD CELL COUNT(AUTO) 2.48 MIL/uL (4.00-5.50); WHITE BLOOD COUNT (AUTO) 21.6 K/uL (4.8-10.8)
[2018-11-02 07:27] LABS: BASOPHILS % (AUTO) 0.7 % (0.0-5.0); EOSINOPHILS % (AUTO) 0.3 % (0.0-8.0); LYMPHOCYTES % (AUTO) 9.8 % (21.0-51.0); MONOCYTES % (AUTO) 6.7 % (3.0-13.0); NEUTROPHILS % (AUTO) 82.5 % (40.0-77.0); NUCLEATED RED BLOOD CELLS 0.1 % (0.0-0.19)
[2018-11-02 07:38] LABS: INR 1.73 (0.85-1.15)
[2018-11-02] MEDS: MORPHINE SULFATE 4 MG/1ML SYG IV PRN (07:43)
[2018-11-02] MEDS: MIDODRINE HCL 5 MG TABLET PO SCH ×3 (07:44→20:51)
[2018-11-02] MEDS: LACTULOSE 20 GM/30 ML UDCUP PO SCH ×2 (07:44→20:50)
--- NOTE | 2018-11-02 08:00 | NUR ---
ASSESSMENT PT IS AAOX4 RESTING IN BED. NO COMPLAINTS AT THIS TIME. DR ANA DYSON ROUNDED, ORDERS RECEIVED.
[2018-11-02] MEDS: OCTREOTIDE ACETATE 1,000 MCG in SODIUM CHLORIDE 0.9% 95 ML IV SCH (09:23)
[2018-11-02] MEDS: OCTREOTIDE ACETATE 100 MCG/ML AMP IV SCH (09:23)
--- NOTE | 2018-11-02 09:30 | NUR ---
DR DYSON ROUNDED ORDERS RECEIVED AND CARRIED OUT. DR PEREZ ROUNDED.
[2018-11-02] MEDS: PHYTONADIONE 10 MG in SODIUM CHLORIDE 0.9% 50 ML IV SCH (09:35)
[2018-11-02 09:59] LABS: CREATININE 3.1 mg/dL (0.5-1.5)
[2018-11-02 11:00] VITALS: BP 115/57
--- NOTE | 2018-11-02 11:00 | NUR ---
UP TO RESTROOM BACK TO BED WITH ASSISTANCE. NO COMPLAINTS AT THIS TIME.
[2018-11-02 13:17] LABS: HEMATOCRIT 27.3 % (36-48)
--- NOTE | 2018-11-02 13:55 | NUR ---
STATUS PATIENT IS ASLEEP , BREATHING PATTERN IS EVEN AND UNLABORED. NO VISIBLE SIGNS OF DISTRESS NOTED. SISTER AT BEDSIDE.
--- NOTE | 2018-11-02 14:13 | NUR ---
DC PLAN BRIEFLY SPOKE TO PATIENT. WAS NOT FEELING VERY WELL. SPOKE TO FLIGHT TEST MECHANIC AND WAS TOLD THAT DR. RICE HAD DONE A PEER TO PEER TO TRANSFER PATIENT TO TRANSPLANT CENTER. GOT NOTES FROM DR. RODRIGUEZ OFFICE REGARDING EGD AND COLONOSCOPY DONE IN OFFICE. GOT NOTES FROM 3 WEEKS AGO FROM PREVIOUS ADMISSION. WENT OVER NOTES WITH DR. LLANES. PATIENT WAS TOLD 3 WEEKS PRIOR OF LIVER CIRROHSIS. DR. RODRIGUEZ TOLD PATIENT AFTER EGD TO CUT DOWN ON ALCOHOL AND FOLLOW UP IN A WEEK REGARDING ELEVATED LABS TO MAKE PLAN OF CARE. PATIENT NEVER FOLLOWED UP. THOSE COULD BE SOME OF THE REASONS THAT THE TRANSPLANT CENTER DID NOT ACCEPT PATIENT. Addendum: 11/05/18 at 1420 by HAMIDA MOSER RN CM Amended: Links added.
[2018-11-02 16:00] VITALS: BP 99/55
--- NOTE | 2018-11-02 16:34 | NUR ---
RD notification for poor nutritional status Upon visit, patient reports return of appetite, however patient reports only consuming 50% at breakfast as patient normally does not eat breakfast. Patient with altered renal labs;RD rec to adv diet to Heart Healthy, Renal nondialysis diet when medically feasible. RD to consider ensure if patient intake does not improve;RD to monitor, patient agrees. Patient LBM 11/01/18. Patient with altered labs; K 3.0, CO2 15, Cr 3.1, Glu 114, GFR 18, Fe 6.9, Alb 1.9; RD to continue to monitor. RD to follow-up. Please notify RD as nutritional concerns arise. Thank you. Addendum: 11/02/18 at [address] RD Amended: Links added.
[2018-11-02] MEDS: ALPRAZOLAM 0.25 MG TABLET PO PRN ×2 (16:36→21:05)
[2018-11-02 18:35] LABS: HEMATOCRIT 27.1 % (36-48)
--- NOTE | 2018-11-02 19:00 | NUR ---
EDEMA/JAUNDICED Pt has generalized edema to her arms,legs.Icteric sclera,skin is jaundiced.Mother is concerned about the swelling and asking if it will come down.Pt initially refusing her lactulose,informed importance of taking it as prescribed.
[2018-11-02 19:46] VITALS: BP 126/58
[2018-11-02] MEDS ORDERED: POTASSIUM CHLORIDE 20MEQ/100ML 100 ML IV SCH (21:00)
[2018-11-02] MEDS ORDERED: PANTOPRAZOLE 40 MG/VIAL IVP SCH (21:00)
--- NOTE | 2018-11-02 21:05 | NUR ---
XANAX Pt requesting for her anti-anxiety pill.Xanax given.
--- NOTE | 2018-11-02 22:25 | NUR ---
BEHAVIOR Pt insists on sleeping on the bedside chair/cot.Informed her re safety precautions.She said she's very uncomfortable in the bed and wants to sleep on the chair.Mother at bedside,informed them to call for assitance.
[2018-11-02 23:00] VITALS: BP 104/58
[2018-11-03] MEDS: ZOSYN 3.375GM+NS 50ML 50 ML IV SCH ×3 (00:01→14:25)
--- NOTE | 2018-11-03 02:05 | NUR ---
SLEEP Pt sleeping quietly in bed,arousable.Denies any pain or discomfort.
[2018-11-03] MEDS: OCTREOTIDE ACETATE 1,000 MCG in SODIUM CHLORIDE 0.9% 95 ML IV SCH (03:10)
[2018-11-03] MEDS: SODIUM CHLORIDE 0.9% 1000ML 1,000 ML IV SCH (03:16)
[2018-11-03 03:31] VITALS: BP 99/51
[2018-11-03 04:12] LABS: HEMATOCRIT 27.2 % (36-48); MEAN CORPUSCULAR HEMOGLOBIN 35.9 pg (27.0-33.0); MEAN CORPUSCULAR HGB CONC 33.3 g/dL (32.0-36.0); MEAN CORPUSCULAR VOLUME 107.9 fL (79-99); NUCLEATED RED BLOOD CELLS 0.1 % (0.0-0.19); PLATELET COUNT (AUTO) 261 K/uL (130-400); RED BLOOD CELL COUNT(AUTO) 2.52 MIL/uL (4.00-5.50); RED CELL DISTRIBUTION WIDTH 21.5 % (11.0-15.5); WHITE BLOOD COUNT (AUTO) 23.1 K/uL (4.8-10.8)
[2018-11-03] MEDS: ONDANSETRON HCL 4 MG/2 ML VIAL IV PRN (04:13)
--- NOTE | 2018-11-03 04:13 | NUR ---
NAUSEA Medicated with Zofran Iv for c/o of nausea.
[2018-11-03 04:20] LABS: % IRON SATURATION 109.5 % (22-44)
[2018-11-03 04:21] LABS: INR 1.72 (0.85-1.15); PARTIAL THROMBOPLASTIN TIME 42.5 SEC (26.3-35.5); PROTHROMBIN TIME 17.9 SEC (9.6-11.6)
[2018-11-03 04:35] LABS: ALBUMIN 1.6 g/dL (3.5-5.0); CREATININE 3.1 mg/dL (0.5-1.5); POTASSIUM 3.1 mmol/L (3.5-5.1); TOTAL PROTEIN, SERUM 5.1 g/dL (6.0-8.3)
[2018-11-03 04:51] LABS: BILIRUBIN,TOTAL 19.4 mg/dL (0.2-1.0)
[2018-11-03] MEDS ORDERED: SODIUM CHLORIDE 0.9% 50 ML IV ONE (05:22)
--- NOTE | 2018-11-03 05:27 | NUR ---
MED EFFECT No nausea or vomitting reported.
[2018-11-03] MEDS: OCTREOTIDE ACETATE 100 MCG/ML AMP IV SCH (06:58)
[2018-11-03 07:00] VITALS: BP 93/50
[2018-11-03] MEDS ORDERED: LIDOCAINE HCL-MPF 1% 2ML VIAL IVP PRN (07:30)
[2018-11-03] MEDS ORDERED: POTASSIUM CHLORIDE 10MEQ/100ML 100 ML IV PRN (07:30)
--- NOTE | 2018-11-03 08:00 | NUR ---
ASSESSMENT PT IS AAOX4 DENIES CP DENIES SOB DENIES NV , STATES SHE FEELS ABD PAIN, MORPHINE IV GIVEN. RESTING IN BED. DR DYSON ROUNDED, ORDERS RECEIVED. FAMILY IS AT BEDSIDE.
[2018-11-03] MEDS: LACTULOSE 20 GM/30 ML UDCUP PO SCH ×2 (08:15→21:00)
[2018-11-03] MEDS: PHYTONADIONE 10 MG in SODIUM CHLORIDE 0.9% 50 ML IV SCH (08:15)
[2018-11-03] MEDS: MIDODRINE HCL 5 MG TABLET PO SCH ×3 (08:15→20:15)
[2018-11-03] MEDS: MORPHINE SULFATE 4 MG/1ML SYG IV PRN (08:15)
[2018-11-03] MEDS: ALPRAZOLAM 0.25 MG TABLET PO PRN ×3 (09:44→23:03)
[2018-11-03 11:00] VITALS: BP 96/53
[2018-11-03] MEDS ORDERED: POTASSIUM CHLORIDE 20 MEQ ERTAB PO SCH (11:45)
[2018-11-03] MEDS: FUROSEMIDE 10 MG/ML 4ML VIAL IV SCH ×2 (11:51→23:14)
--- NOTE | 2018-11-03 12:40 | NUR ---
STATUS RESTING IN BED NO COMPLAINTS. DENIES PAIN AT THIS TIME. DOOR AJAR, CALL LIGHT WITHIN REACH.
[2018-11-03 16:00] VITALS: BP 100/57
--- NOTE | 2018-11-03 16:15 | NUR ---
DC PLAN INFORMED DR. DYSON THAT DR. RICE SHOULD HAVE # TO DOC AT [facility] PER CONVERSATION W/ PROFESSIONAL ARCHITECT. CD Addendum: 11/03/18 at 1616 by SANAZ STEWART CM Amended: Links added.
--- NOTE | 2018-11-03 18:02 | NUR ---
STATUS UP TO SHOWER, BACK TO BED. NO COMPLAINTS RESTING. CALL LIGHT WITHIN REACH.
[2018-11-03] MEDS: ALBUMIN (HUMAN) 25% 50 ML IV SCH (18:30)
[2018-11-03] MEDS ORDERED: CEFEPIME HCL 2 GM VIAL IVP SCH (18:30)
[2018-11-03] MEDS: CEFEPIME HCL 1 GM VIAL IVP SCH (18:36)
[2018-11-03 19:00] VITALS: BP 102/62
--- NOTE | 2018-11-03 20:00 | NUR ---
PT ASSESSMENT- IN BED, AAOX3. STATES PAIN TO GENERAL BODY. 9 OUT OF 10. REQUESTING DILAUDID PRN. REQUESTING XANAX PRN. WAS INFORMED IT WAS NOT DUE AT THE TIME. IV PATENT. CONTINUES ON SANDOSTATIN 5ML/HR. DISTENTION TO ABDOMINAL AREA NOTED. JAUNDICE IN COLOR TO SCLERA AND BODY. VERY WEAK. REQUIRES ASSIST TO AMBULATE AND TRANSFER. PT AWARE OF CONDITION AND UPDATE, AWARE OF PENDING REFERRAL TO [facility].
[2018-11-03] MEDS: PANTOPRAZOLE SODIUM 40 MG TABLET.DR PO SCH (20:15)
[2018-11-03] MEDS: HYDROMORPHONE 1 MG/1 ML AMP IVP PRN (20:16)
[2018-11-03] MEDS ORDERED: MIDODRINE HCL 5 MG TABLET PO SCH (21:00)
[2018-11-03] MEDS: METRONIDAZOLE 500MG/100ML BAG 100 ML IV SCH (23:03)
[2018-11-03 23:15] VITALS: BP 100/55
[2018-11-04] VITALS (10 sets, daily range): BP systolic 50–160; BP diastolic 25–137
[2018-11-04] MEDS: ALBUMIN (HUMAN) 25% 50 ML IV SCH ×5 (00:42→20:33)
[2018-11-04] MEDS: OCTREOTIDE ACETATE 1,000 MCG in SODIUM CHLORIDE 0.9% 95 ML IV SCH (02:20)
[2018-11-04 03:39] LABS: HEMATOCRIT 25.8 % (36-48); MEAN CORPUSCULAR HGB CONC 32.2 g/dL (32.0-36.0); MEAN CORPUSCULAR VOLUME 108.8 fL (79-99); NUCLEATED RED BLOOD CELLS 0.1 % (0.0-0.19); PLATELET COUNT (AUTO) 189 K/uL (130-400); RED BLOOD CELL COUNT(AUTO) 2.38 MIL/uL (4.00-5.50); RED CELL DISTRIBUTION WIDTH 21.7 % (11.0-15.5); WHITE BLOOD COUNT (AUTO) 24.3 K/uL (4.8-10.8)
[2018-11-04] MEDS: HYDROMORPHONE 1 MG/1 ML AMP IVP PRN ×4 (03:48→20:42)
[2018-11-04 04:04] LABS: INR 1.7 (0.85-1.15); PARTIAL THROMBOPLASTIN TIME 49.7 SEC (26.3-35.5); PROTHROMBIN TIME 17.7 SEC (9.6-11.6)
[2018-11-04 04:26] LABS: ALBUMIN 1.7 g/dL (3.5-5.0); CREATININE 3.4 mg/dL (0.5-1.5); MAGNESIUM 1.9 mg/dL (1.80-2.40); PHOSPHORUS 2.8 mg/dL (2.5-4.9); POTASSIUM 3.2 mmol/L (3.5-5.1)
[2018-11-04 04:31] LABS: BILIRUBIN,TOTAL 18.1 mg/dL (0.2-1.0)
--- NOTE | 2018-11-04 04:38 | NUR ---
AMMONIA LEVEL OF 87 AND BILI OF 18.1
--- NOTE | 2018-11-04 04:50 | NUR ---
NOTIFIED Katherine MIR ABOUT AMMONIA LEVEL OF 87, BILI 18.1, AND LACTIC ACID OF 3.7. STATED NO NEW ORDERS. CONTINUE ON CURRENT DOSE OF LACTULOSE.
[2018-11-04] MEDS: METRONIDAZOLE 500MG/100ML BAG 100 ML IV SCH ×3 (06:14→22:51)
[2018-11-04] MEDS: CEFEPIME HCL 1 GM VIAL IVP SCH ×2 (06:14→20:17)
--- NOTE | 2018-11-04 08:00 | NUR ---
ASSESSMENT ENCOUNTERED PT IN SEMI MADRID'S POSITION, A&OX3, CALM COOPERATIVE BUT FORGETFUL AND INTERMITTENT ANXIETY, JAUNDICED, ABDOMEN DISTENDED AND TENDER TO TOUCH TO RT LATERAL UPPER AND LOWER QUADRANTS. PT IS AMBULATORY, GAIT SLOW BUT STEADY WITH ASSIST, PT ALSO DOES C/O GENERALIZED BODY ACHES, WEAKNESS, EDEMA AND UNABLE TO LAY FLAT, THERE IS SOME REDNESS TO SACRAL AREA, ALLEVYN PAD PLACED, WEDGE PILLOW PLACED, PT ENCOURAGED TO TURN EVERY 2 HOURS WITH FAMILY ASSISTANCE OR TO CALL FOR ASSISTANCE. CALL LIGHT WITHIN REACH, FAMILY AT BEDSIDE.
[2018-11-04] MEDS: PANTOPRAZOLE SODIUM 40 MG TABLET.DR PO SCH ×2 (08:47→20:33)
[2018-11-04] MEDS: MIDODRINE HCL 5 MG TABLET PO SCH ×3 (08:47→20:32)
[2018-11-04] MEDS: LACTULOSE 20 GM/30 ML UDCUP PO SCH ×2 (08:47→20:32)
[2018-11-04] MEDS: ONDANSETRON HCL 4 MG/2 ML VIAL IV PRN ×2 (08:53→20:33)
[2018-11-04] MEDS: FUROSEMIDE 10 MG/ML 4ML VIAL IV SCH ×2 (08:54→18:07)
[2018-11-04] MEDS ORDERED: SODIUM BICARBONATE 650 MG TAB PO SCH (10:58)
--- NOTE | 2018-11-04 14:30 | NUR ---
Family Questions Called into room. Patient and sister at bedside had questions as to status of transfer. Informed Dr. Nogueira was in process of attempting to speak to transplant physician. Verbalized other concerns to staff. CD
--- NOTE | 2018-11-04 16:20 | NUR ---
ANXIETY PT C/O ANXIETY, REPOSITIONED PATIENT FROM SUPINE TO HIGH MADRID'S POSITION AND INFORMED PATIENT AND FAMILY AT BEDSIDE TO KEEP PATIENT IN HIGH MADRID'S POSITION TO REDUCE SYMPTOMS OF SHORTNESS OF BREATH. PT STATES SHE DOES FEEL BETTER IN SITTING POSITION.
[2018-11-04] MEDS: ALPRAZOLAM 0.25 MG TABLET PO PRN (18:22)
--- NOTE | 2018-11-04 21:00 | NUR ---
PM ASSESSMENT PT PRESENTS AWAKE AND ALERT, BUT FORGETFUL. MOTHER IS AT BEDSIDE. PT IS ON 2LNC SATTING 92%. PT WITH [place] AND ORTHOPNEA. PT AND MOTHER REMINDED TO KEEP PT AT SEMI MADRID'S IN BED. PT REPORTS RELIEF OF SOB WHEN SITTING UP. PT REMOVED NASAL CANNULA WHILE SITTING IN BED. EDUCATED PT ON IMPORTANCE OF KEEPING NC ON, PLACED NC BACK ON PT. PT VERBALIZES UNDERSTANDING. PT REQUESTING WATER. PT GIVEN ICE CHIPS AND EDUCATED ON FLUID RESTRICTION. MOTHER AND PT AWARE OF PLAN OF CARE: UA NEEDED, PARACENTESIS IN AM, PAIN MANAGEMENT, AND FLUID MANAGEMENT. PT AND MOTHER VERBALIZE UNDERSTANDING. BREATHING TECHNIQUES TAUGHT: SLOW DEEP BREATHING AND BREATHING THROUGH NOSE AND OUT THROUGH MOUTH. DURING TEACHING, PT DISTRACTED WITH HALLWAY NOISE/MOVEMENT; DOOR CLOSED FOR COMFORT AND REST. NONSKID SOCKS ON, BED IN LOWEST POSITION, CALL MAZARIEGOS WITHIN REACH, AND PT DEMONSTRATES HOW TO USE. WILL CONTINUE TO MONITOR.
--- NOTE | 2018-11-04 23:35 | NUR ---
LG WEEKS ACTIVATED AT 2335. RESPONDED TO CALL LIGHT. PT SITTING IN BED WITH AGONAL BREATHING, PULSE PALPATED ON LEFT CAROTID. MOTHER AT THE BEDSIDE. LG WEEKS ACTIVATED. CRASH CART BROUGHT INTO ROOM AND PT PLACED ON PADS, CPR INITIATED. SEE LG WEEKS SHEET. Addendum: 11/05/18 at 0737 by XIMENA BROWER RN RN UPON ENTERING ROOM, PT PRESENTED WITH NASAL CANNULA ON BED AND NOT IN PLACE.
[2018-11-04] MEDS ORDERED: SODIUM CHLORIDE 0.9% 250 ML IV ONE (23:49)
[2018-11-04] MEDS ORDERED: NOREPINEPHRINE BITARTRATE 1 MG/1 ML ML IV ONE (23:49)
--- NOTE | 2018-11-05 00:05 | NUR ---
TO ICU RM#[id number] VIA BED WITH BAGGING IN PROGRESS BY RT, SHEBA. ETT 7.5 AT 23CM AT LIPS CONNECTED TO VENT AC 12, TV 450, PEEP 5, 100% FIO2. OGT INSERTED BY REJI TAM. IV ATTEMPTS BY REJI MELENDEZ DONE, UNSUCCESSFULLY. OGT CONNECTED TO LIS WITH FOOD PARTICLES NOTED. DODSON INSERTED BY THIS NURSE, URINE DARK FLORINA TEA COLOR. IV 22G STARTED TO RT FINGER AND INFUSING DOPAMINE AND LEVOPHED. SANDOSTATIN INFUSING AT 5ML/HR (50MCG/HR) TO 24G AT LT THUMB. 20G AT LT FOREARM INFUSING IVF NS. PAGED PA GIRISH TUTTLE FOR ORDERS. ALLEVYN PATCH NOTED TO SACRUM FOR PREVENTION, NO WOUND NOTED. SKIN AND SCLERA VERY JAUNDICED. ALSO YELLOW FLUID NOTED IN ETT. SEEPAGE OF YELLOW SEROUS FLUID FROM BILAT ARMS NOTED WELL.
[2018-11-05 00:07] LABS: BASOPHILS % (AUTO) 0.8 % (0.0-5.0); EOSINOPHILS % (AUTO) 0.2 % (0.0-8.0); LYMPHOCYTES % (AUTO) 9.1 % (21.0-51.0); MEAN CORPUSCULAR HEMOGLOBIN 35.4 pg (27.0-33.0); MEAN CORPUSCULAR HGB CONC 29.8 g/dL (32.0-36.0); MEAN CORPUSCULAR VOLUME 118.8 fL (79-99); MONOCYTES % (AUTO) 2.9 % (3.0-13.0); NUCLEATED RED BLOOD CELLS 0.8 % (0.0-0.19); PLATELET COUNT (AUTO) 235 K/uL (130-400); RED BLOOD CELL COUNT(AUTO) 2.52 MIL/uL (4.00-5.50); RED CELL DISTRIBUTION WIDTH 22.8 % (11.0-15.5)
[2018-11-05 00:10] VITALS: BP 167/116
[2018-11-05 00:12] LABS: WHITE BLOOD COUNT (AUTO) 33.5 K/uL (4.8-10.8)
[2018-11-05 00:30] LABS: ALANINE AMINOTRANSFERASE 39 U/L (12-78); ALBUMIN 3.2 g/dL (3.5-5.0); AMYLASE 21 U/L (25-115); ASPARTATE AMINOTRANSFERASE 219 U/L (10-37); CHLORIDE 103 mmol/L (101-111); CREATINE KINASE, TOTAL 55 U/L (21-232); CREATININE 4.1 mg/dL (0.5-1.5); GLOMERULAR FILTR. RATE CALC 13 mL/min (>60); GLUCOSE,RANDOM 123 mg/dL (70-105); LIPASE 492 U/L (114-286); MYOGLOBIN 126 ng/mL (10-92); POTASSIUM 3.8 mmol/L (3.5-5.1); SODIUM SERUM 139 mmol/L (136-145); TOTAL PROTEIN, SERUM 6.3 g/dL (6.0-8.3); TROPONIN I < 0.04 ng/mL (0.00-0.06); UREA NITROGEN, BLOOD 23 mg/dL (7-18)
[2018-11-05 00:31] LABS: INR 1.9 (0.85-1.15); PARTIAL THROMBOPLASTIN TIME 79.7 SEC (26.3-35.5); PROTHROMBIN TIME 19.7 SEC (9.6-11.6)
[2018-11-05 00:35] LABS: AMMONIA 92 umol/L (11-32); BILIRUBIN,TOTAL 20.5 mg/dL (0.2-1.0)
[2018-11-05 00:36] LABS: CARBON DIOXIDE 9 mmol/L (21-32)
[2018-11-05 00:45] LABS: B-TYPE NATRIURETIC PEPTIDE 1850 pg/mL (0-100)
[2018-11-05] MEDS ORDERED: FENTANYL 2500MCG+NS 250ML 250 ML IV ONE (00:48)
[2018-11-05 01:00] VITALS: BP 90/65
[2018-11-05] MEDS ORDERED: FENTANYL 2500MCG+NS 250ML 250 ML IV SCH (01:00)
[2018-11-05] MEDS ORDERED: MIDAZOLAM 100MG-0.9% NS 100ML 100 ML IV PRN (01:00)
--- NOTE | 2018-11-05 01:00 | NUR ---
ORDERS WERE RECEIVED BY ROXANNE TUTTLE AND CARRIED OUT. PT NOW ON SEDATION OF VERSED 2MG/HR AND FENTANYL 25MCG/HR. SHEBA RT OBTAINED BLOOD SPECIMEN FOR ABG'S.
[2018-11-05 01:03] LABS: ABG BASE EXCESS -28.9 mmol/L (-2.0-3.0); ABG HCO3 6.3 mmol/L (21.0-28.0); ABG OXYGEN SATURATION 82.2 % (95.0-99.0); ABG PCO2 43 mmHg (32-45)
[2018-11-05] MEDS ORDERED: SODIUM BICARB 50MEQ 50ML VIAL ONE (01:39)
[2018-11-05] MEDS ORDERED: DEXTROSE 5%-WATER 1,000 ML IV ONE (01:41)
[2018-11-05] MEDS ORDERED: SODIUM BICARB 8.4% 50ML SYRING 150 MEQ in DEXTROSE 5%-WATER 1,000 ML IV SCH (01:45)
[2018-11-05] MEDS ORDERED: SODIUM BICARB 50MEQ 50ML VIAL IV ONE ×2 (01:45)
[2018-11-05 02:00] VITALS: BP 98/57
[2018-11-05 02:04] LABS: BAND NEUTROPHILS % (MANUAL) 10 % (0-2); LYMPHOCYTES % (MANUAL) 15 % (22-44); MONOCYTES % (MANUAL) 6 % (2-9); SEGMENTED NEUTROPHILS % 69 % (40-70)
[2018-11-05 02:05] LABS: MAN.DIFF COMMENT-IMPRESSION MANUAL DIFFERENTIAL; PLATELET MORPHOLOGY COMMENT ADEQUATE
[2018-11-05 03:00] VITALS: BP 94/57
[2018-11-05 03:59] LABS: HEMATOCRIT 27.4 % (36-48); MEAN CORPUSCULAR HEMOGLOBIN 35.5 pg (27.0-33.0); MEAN CORPUSCULAR HGB CONC 30.3 g/dL (32.0-36.0); MEAN CORPUSCULAR VOLUME 117.2 fL (79-99); NUCLEATED RED BLOOD CELLS 1.6 % (0.0-0.19); PLATELET COUNT (AUTO) 224 K/uL (130-400); RED BLOOD CELL COUNT(AUTO) 2.34 MIL/uL (4.00-5.50); RED CELL DISTRIBUTION WIDTH 22.6 % (11.0-15.5)
[2018-11-05 04:00] VITALS: BP 93/51
[2018-11-05 04:05] LABS: WHITE BLOOD COUNT (AUTO) 31.9 K/uL (4.8-10.8)
[2018-11-05 04:25] LABS: ALBUMIN 2.2 g/dL (3.5-5.0); CREATININE 3.6 mg/dL (0.5-1.5); MAGNESIUM 1.7 mg/dL (1.80-2.40); PHOSPHORUS 5.1 mg/dL (2.5-4.9); POTASSIUM 3.3 mmol/L (3.5-5.1); TOTAL PROTEIN, SERUM 4.9 g/dL (6.0-8.3)
[2018-11-05 04:27] LABS: % IRON SATURATION 7.1 % (22-44)
[2018-11-05 04:37] LABS: BILIRUBIN,TOTAL 16.9 mg/dL (0.2-1.0)
[2018-11-05 04:41] LABS: INR 2.26 (0.85-1.15); PROTHROMBIN TIME 23.4 SEC (9.6-11.6)
[2018-11-05 04:50] LABS: PARTIAL THROMBOPLASTIN TIME 90.5 SEC (26.3-35.5)
[2018-11-05 05:00] VITALS: BP 87/53
[2018-11-05 05:19] LABS: ABG BASE EXCESS -23.9 mmol/L (-2.0-3.0); ABG HCO3 8.4 mmol/L (21.0-28.0); ABG OXYGEN SATURATION 65.7 % (95.0-99.0); ABG PCO2 41 mmHg (32-45)
[2018-11-05 05:35] LABS: ABG HCO3 8.6 mmol/L (21.0-28.0); ABG OXYGEN SATURATION 64.6 % (95.0-99.0); ABG PCO2 44 mmHg (32-45)
[2018-11-05] MEDS: METRONIDAZOLE 500MG/100ML BAG 100 ML IV SCH (05:36)
[2018-11-05] MEDS: ALBUMIN (HUMAN) 25% 50 ML IV SCH (05:36)
[2018-11-05] MEDS: CEFEPIME HCL 1 GM VIAL IVP SCH (05:37)
--- NOTE | 2018-11-05 06:15 | NUR ---
ROXANNE TUTTLE MADE AWARE OF ABG RESULTS. ORDER REC'D TO PUSH X2 AMPS BICARB AND INCREASE B=VENT PEEP TO 12. ORDERS CARRIED OUT.
--- NOTE | 2018-11-05 06:20 | NUR ---
CODE BLUE CALLED; SEE CODE SHEET. CODE ENDED SUCCESSFULLY AT 626. VASOPRESSORS RATES INCREASED. BICARB RATE INCREASED TI 150ML/HR PER ORDERS OF ER DOCTOR MINA.
--- NOTE | 2018-11-05 06:47 | NUR ---
LG WEEKS CALLED. PT'S MOTHER AND SISTER AT . CALLED VIA TC , NOTIFIED OF STATUS, AND STATED, "IM ON MY WAY DOWN." DR. ENRIQUEZ AT MADE AWARE THAT PMD IS ON HIS WAY.
[2018-11-05] MEDS ORDERED: PHENYLEPHRINE HCL 50 MG in SODIUM CHLORIDE 0.9% 250 ML IV SCH (07:00)
[2018-11-05] MEDS ORDERED: PHENYLEPHRINE HCL 10 MG/ML 1ML VIAL IV ONE (07:01)
--- NOTE | 2018-11-05 07:08 | NUR ---
CODE MICKY CALLED AGAIN. TALKING TO FAMILY WHO EXPRESSED WISHES TO STOP CPR. CODE STOPPED AT 0709. FAMILY MOURNING AT BS.
--- NOTE | 2018-11-05 07:09 | NUR ---
PRESENT IN PATIENT'S ROOM WHEN CODE CALLED @ 0708. DR. DYSON SPOKE TO THE FAMILY MEMBERS WHO REQUESTED THAT WE NOT CONTINUE CODING HER. DR. DYSON STOPPED THE CODE. PT. @ 0709. FAMILY MEMBERS WERE WAITING OUTSIDE THE ROOM
--- NOTE | 2018-11-05 08:10 | NUR ---
[facility] from [facility] eye called unit to get information on patient. Patient is ruled out for tissue but is possible for eye donation. Family to be approached by tissue bank. [facility]ita gave the okay to take patient to the [facility]. cab supervisor notified.
[2018-11-05] MEDS ORDERED: MEROPENEM 1 GM VIAL IVP SCH (08:30)
[2018-11-05] MEDS ORDERED: RENAL DOSE IV PRN (08:30)
[2018-11-05] MEDS ORDERED: FLUCONAZOLE 400 MG/NS 200 ML 200 ML IV SCH (08:30)
[2018-11-05] MEDS ORDERED: VANCOMYCIN 1GM+NS 250ML 250 ML IV SCH (08:30)
--- NOTE | 2018-11-05 09:00 | NUR ---
Patient prepared for the morgue. Eyes prepped for possible donation (Saline drops to eyes, covered with saline soaked gauze and taped in place).
--- NOTE | 2018-11-05 09:31 | NUR ---
Patient taken to the morgue by security. supervisor phosphorus processing aware.
== END 2018-11-05 07:09 | disposition expired | DRG 441 ==
LOC: EDH 16:18 → INTOOBSV 16:19 → OBSVTOIN 16:19 → EDHIP 16:19 → 2DH 11-01 10:47 → 2BH 11-05 00:03
PROVIDERS: ADMIT Internal Medicine; ATTEND Internal Medicine
PROC: 5A12012 Performance of Cardiac Output, Single, Manual (ICD-10-PCS; 2018-11-04)
PROC: 5A1935Z Respiratory Ventilation, Less than 24 Consecutive Hours (ICD-10-PCS; principal; 2018-11-05)
PROC: 0BH17EZ Insertion of Endotracheal Airway into Trachea, Via Natural or Artificial Opening (ICD-10-PCS; 2018-11-05)
PROC: 5A12012 Performance of Cardiac Output, Single, Manual (ICD-10-PCS; 2018-11-05)
PROC: 5A12012 Performance of Cardiac Output, Single, Manual (ICD-10-PCS; 2018-11-05)
PROC: 30233K1 Transfusion of Nonautologous Frozen Plasma into Peripheral Vein, Percutaneous Approach (ICD-10-PCS; 2018-11-05)
PROC: 30233N1 Transfusion of Nonautologous Red Blood Cells into Peripheral Vein, Percutaneous Approach (ICD-10-PCS; 2018-11-05)
DX: K72.00 Acute and subacute hepatic failure without coma (principal); I81 Portal vein thrombosis; E43 Unspecified severe protein-calorie malnutrition; K76.7 Hepatorenal syndrome; N17.9 Acute kidney failure, unspecified; N10 Acute pyelonephritis; D62 Acute posthemorrhagic anemia; D68.9 Coagulation defect, unspecified; E87.2 Acidosis; K76.6 Portal hypertension; K92.2 Gastrointestinal hemorrhage, unspecified; K74.60 Unspecified cirrhosis of liver; K70.11 Alcoholic hepatitis with ascites; I46.9 Cardiac arrest, cause unspecified; E86.1 Hypovolemia; E87.6 Hypokalemia; E87.70 Fluid overload, unspecified; F06.4 Anxiety disorder due to known physiological condition; I10 Essential (primary) hypertension; I95.9 Hypotension, unspecified; Z68.31 Body mass index [BMI] 31.0-31.9, adult; Z88.5 Allergy status to narcotic agent; Z88.8 Allergy status to other drugs, medicaments and biological substances; Z86.010 Personal history of colon polyps; Z82.49 Family history of ischemic heart disease and other diseases of the circulatory system; Z83.2 Family history of diseases of the blood and blood-forming organs and certain disorders involving the immune mechanism
CPT/HCPCS: 31500; 36415; 36430; 36600; 71045; 74176; 76700; 80048; 80053; 80076; 80305; 80339; 81001; 81025; 82140; 82150; 82270; 82550; 82803; 82948; 83540; 83550; 83605; 83690; 83735; 83874; 83880; 84100; 84484; 85014; 85018; 85025; 85027; 85060; 85220; 85300; 85303; 85305; 85306; 85610; 85651; 85730; 86140; 86147; 86850; 86900; 86901; 86922; 86927; 87040; 87804; 92950; 93005; 93975; 94002; A4218; A4344; C9113; G0378; G0480; J0171; J0461; J0692; J0696; J1170; J1265; J1450; J1940; J1956; J2060; J2270; J2354; J2370; J2405; J2543; J3010; J3430; J3480; J3490; J7030; J7040; J7060; J7070; J7608; P9016; P9017; P9046